=== PATIENT | female | born 1935 | race Caucasian/White ===

== ENCOUNTER 2016-10-17 09:47 | Emergency (ER) | payer MEDICARE ==
--- NOTE | ~2016-10-17 | CR63 ---
[facility] A Service of [facility] RADIOLOGY TEXT RESULTS PATIENT: KERRIE ROSARIO LOCATION: [facility] : 36 UNIT #: [id number] AGE: [address]: Sandra Higgins APRN SEX: F ORDER DR: [id number] [facility] [address] [place], [place] [address] [id number] E MR#: [id number] Acc #: [id number] NAME: KERRIE ROSARIO : 1935 SEX: F STUDY DATE/TIME: 10/17/2016 10:25 UNIT: [facility] ROOM: STUDY DESCRIPTION: CR Chest 2 View Attending Physician: Sandra Higgins A.P.R.N. Ordering Physician: Ed Doctor [id number] [facility] Primary Care Physician: Celeste Mirza M.D. MEDICAL IMAGING REPORT This report is preliminary unless electronic signature is present EXAM Chest 2 views 10/17/2016. INDICATIONS 81-year-old female with cough, shortness of air, symptoms 3 days. Right-sided breast cancer for 8 years, mastectomy. TECHNIQUE 2 views of the chest were performed. COMPARISON No comparisons. FINDINGS Cardiac silhouette is within normal limits for technique. The vascularity is unremarkable. Lung volumes are low and there is bronchovascular crowding. The left lung is clear. There is atelectasis or potentially pneumonia in the right lung base. Surgical clips project over the right axilla and right hemithorax, most characteristic of prior mastectomy and axillary node dissection procedures. No pneumothorax. IMPRESSION 1. Postop changes of mastectomy on the right and axillary node dissection. 2. Imaging features suggest atelectasis on the frontal view, but on the lateral view there is increased density in the right lung base and this may reflect right lower lobe pneumonia. Follow up to clearing after appropriate therapy is recommended. No pneumothorax or associated effusion. We have no comparisons. Dictated by... Merritt Thomas M.D. [facility] A Service of [facility] RADIOLOGY TEXT RESULTS PATIENT: KERRIE ROSARIO LOCATION: [facility] : 36 UNIT #: [id number] AGE: [address]: Sandra Higgins APRN SEX: F ORDER DR: THIS IS AN ELECTRONICALLY VERIFIED REPORT Merritt Thomas M.D. at 10/17/2016 5:35 PM Laurie TD: 10/17/2016 16:26 JOB #: [id number] MEDICAL IMAGING REPORT COPY
[2016-10-17 10:19] LABS: BASOPHIL% 0.4 % (0-2.5); EOSINOPHIL# 0.1 X10e3 (0-0.7); EOSINOPHIL% 1.7 % (0.0-7.0); HEMATOCRIT 33.9 % (35.0-45.0); HEMOGLOBIN 11.4 gm/dL (12.0-16.0); LYMPHOCYTE# 0.9 X10e3 (1.0-3.5); LYMPHOCYTE% 15.7 % (17.0-45.0); MEAN CELL VOLUME 90.2 FL (83-96); MEAN CORPUSCULAR HEMOGLOBIN 30.3 PG (28-34); MEAN CORPUSCULAR HGB CONC 33.6 g/dL (30-36); MEAN PLATELET VOLUME 9.5 FL (6.5-11.5); MONOCYTE# 0.4 X10e3 (0-1.0); NEUTROPHIL# 4.4 X10e3 (1.5-7.1); NEUTROPHIL% 75.2 % (40-75); PLATELET COUNT 209 X10e3 (140-420); RED BLOOD COUNT 3.76 X10e (3.90-5.30); RED CELL DISTRIBUTION WIDTH 14.1 % (11.0-15.5); WHITE BLOOD COUNT 5.8 X10e3 (4.0-10.5)
[2016-10-17 10:27] LABS: DIFF IND NO
[2016-10-17 10:52] LABS: ALBUMIN SERUM 3.5 g/dL (3.5-5.0); ALKALINE PHOSPHATASE 46 U/L (32-92); ALT (SGPT) 11 U/L (10-40); AST (SGOT) 15 U/L (10-42); BILIRUBIN, DIRECT 0.1 mg/dL (0.0-0.2); BILIRUBIN,INDIRECT 0.6 mg/dL (0.0-0.9); BILIRUBIN,TOTAL 0.7 mg/dL (0.2-2.0); BLOOD UREA NITROGEN 24 mg/dL (9-23); CALCIUM SERUM 9.6 mg/dL (8.4-10.2); CARBON DIOXIDE 26 mmol/L (22-31); CHLORIDE 102 mmol/L (100-111); CREATININE SERUM 0.8 mg/dL (0.6-1.4); GLOM FILT RATE Estimated ABOVE60 mL/min (>60); GLUCOSE FASTING 226 mg/dL (70-110); LIPASE 19 U/L (22-51); POTASSIUM 3.7 mmol/L (3.5-5.1); PROTEIN TOTAL SERUM 6.4 g/dL (6.0-8.3); SODIUM 136 mmol/L (135-145)
[2016-10-17 11:48] LABS: URINE SOURCE CLEAN CATCH
[2016-10-17 11:59] LABS: URINE APPEARANCE TURBID; URINE BILIRUBIN NEG (NEG); URINE BLOOD 2+ (NEG); URINE COLOR YELLOW; URINE GLUCOSE 100 MG/DL (NEG); URINE KETONE NEG (NEG); URINE LEUKOCYTE ESTERASE 3+ (NEG); URINE NITRATE NEG (NEG); URINE PROTEIN 2+ (NEG); URINE UROBILINOGEN 0.2 MG/DL (NEG)
[2016-10-17 12:02] LABS: CULTURE INDICATED? YES; URBCS1 AUWI 50-100 /[HPF] (0-2); URINE BACTERIA AUWI 4+ (NEGATIVE); URINE SQUAMOUS EPITHELIAL CELL OCC /[HPF]; UWBCS1 AUWI 200-300 (0-5)
== END 2016-10-17 13:00 | disposition home or self-care (01) ==
LOC: CED 09:47
PROVIDERS: Nurse Practitioner
DX: N30.00 Acute cystitis without hematuria (principal); J18.1 Lobar pneumonia, unspecified organism; Z86.73 Personal history of transient ischemic attack (TIA), and cerebral infarction without residual deficits; E11.9 Type 2 diabetes mellitus without complications; Z79.4 Long term (current) use of insulin; Z85.3 Personal history of malignant neoplasm of breast; Z90.710 Acquired absence of both cervix and uterus; Z90.49 Acquired absence of other specified parts of digestive tract; Z88.8 Allergy status to other drugs, medicaments and biological substances
CPT/HCPCS: 36415; 71020; 80048; 80076; 81003; 82947; 83690; 85025; 87086; 87088; 87186; 99284; J2405

== ENCOUNTER 2017-03-04 18:10 | Inpatient (IN) | payer MEDICARE ==
[~2017-03-04] VITALS: Ht 160 cm; Wt 82.6 kg
--- NOTE | ~2017-03-04 | CT52 ---
[facility] A Service of [facility] RADIOLOGY TEXT RESULTS PATIENT: KERRIE ROSARIO LOCATION: [facility] 328-01 : 36 UNIT #: [id number] AGE: [address]: Clay Orosco MD SEX: F ORDER DR: [id number] [facility] [address] [place], [place] [address] [id number] I MR#: [id number] Acc #: [id number] NAME: KERRIE ROSARIO : 1935 SEX: F STUDY DATE/TIME: 03/04/2017 20:13 UNIT: A [facility] ROOM: [facility] STUDY DESCRIPTION: CT Cervical Spine Wo Cont Attending Physician: Clay Orosco M.D. Referring Physician: Celeste Mirza M.D. Ordering Physician: Josef Posadas D.O. Primary Care Physician: Celeste Mirza M.D. MEDICAL IMAGING REPORT This report is preliminary unless electronic signature is present EXAM CT cervical spine without contrast HISTORY Fell yesterday in bathroom, generalized neck tenderness. TECHNIQUE This CT exam was performed with one or more of the following radiation dose reduction techniques: automatic exposure control, adjustment of mA and/or kV according to patient size, and iterative reconstruction. FINDINGS Axial images performed through the cervical spine without contrast. Multiplanar reconstructions. No definite acute fracture. Due to the advanced degenerative changes in the lower cervical spine particularly at C5 and C6 mild compression deformity cannot be excluded. There is retrolisthesis C5 on C6 and C6 on C7 and anterolisthesis C7 on T1. This is all most likely related to degenerative disc disease. Multilevel spinal and foraminal stenosis most pronounced at C5-6 and C6-7 particularly on the right at C6-7. Paravertebral soft tissues unremarkable. IMPRESSION No definite acute abnormality identified however due to patient's extensive degenerative changes lower cervical spine and multilevel facet disease, this could obscure underlying acute injury. Patient has retrolisthesis C5 on C6 and C6 on C7 and anterolisthesis C7 on T1 probably all degenerative in nature. There is multilevel spinal and foraminal stenosis most pronounced at C5-6 and C6-7. Dictated by... Samantha Arceo M.D. [facility]. [facility] A Service of [facility] RADIOLOGY TEXT RESULTS PATIENT: KERRIE ROSARIO LOCATION: [facility] 328-01 : 36 UNIT #: [id number] AGE: [address]: Clay Orosco MD SEX: F ORDER DR: THIS IS AN ELECTRONICALLY VERIFIED REPORT Samantha Arcoe M.D. at 03/05/2017 1:04 PM Stella TD: 03/05/2017 09:06 JOB #: [id number] MEDICAL IMAGING REPORT Page 1 of 1 COPY
--- NOTE | ~2017-03-04 | DS ---
Unit #: [id number] #: [id number] Patient: KERRIE ROSARIO [id number] [address] [address] [id number] I MR#: [id number] NAME: KERRIE ROSARIO ROOM: 328 Age: 81 Sex: F Admission Date: 03/04/2017 : 1935 Discharge Date: 03/06/2017 Attending Physician: Clay Orosco M.D. Referring Physician: Celeste Mirza M.D. Primary Care Physician: Celeste Mriza M.D. DISCHARGE SUMMARY DISCHARGE DIAGNOSES 1. Dizziness. 2. History of cerebrovascular accident. 3. Insulin-dependent diabetes. 4. Urinary tract infection. HOSPITAL COURSE The patient is an 81-year-old female, who presented to [facility] Emergency Department with complaint of feeling weak, some dizziness, and possible syncope. She stated that she simply did not feel well. CT scan of her head showed hypodensities and bilateral front white matter that were noted to be age indeterminate but felt to probably be chronic. There was thought to be no way to exclude an acute superimposed process. As a result, the patient was admitted. MRI and CT angiography were ordered per stroke purposes. MRI showed nothing acute. CT angiography revealed no hemodynamically flow-limiting stenosis in the bilateral internal carotid bulbs per NASCET criteria. There was no noted flow limitations throughout the scan. Incidentally, the patient was noted to have a urinary tract infection with her UA growing E. coli. The patient did note some urinary frequency of late. As a result, the patient is being discharged now on Keflex. DISCHARGE MEDICATIONS 1. Keflex 500 mg p.o. t.i.d. 2. Cozaar 100 mg p.o. daily. 3. Sertraline 150 mg p.o. daily. 4. Metformin 500 mg p.o. t.i.d. 5. Famotidine 20 mg p.o. daily. 6. Tolterodine 2 mg at bedtime. 7. Calcium plus vitamin D one p.o. b.i.d. 8. Aspirin 81 mg daily. 9. Atorvastatin 80 mg daily. 10. Lantus 13 units at bedtime. 11. Zofran 4 mg t.i.d. as needed for nausea. 12. Lomotil White 2.5 mg q.4 hours p.r.n. diarrhea. FOLLOWUP Patient should follow up with her primary care provider at the end of her antibiotic course. Unit #: [id number] #: [id number] Patient: KERRIE ROSARIO Dictated by... Sebastian Nj/jagruti TD: 03/07/2017 11:03 JOB #: [id number] DISCHARGE SUMMARY Page 1 of 1 X Clay Orosco MD X DISCHARGE SUMMARY
--- NOTE | ~2017-03-04 | CT17 ---
[facility] A Service of [facility] RADIOLOGY TEXT RESULTS PATIENT: KERRIE ROSARIO LOCATION: [facility] 328- : 36 UNIT #: [id number] AGE: [address]: Clay Orosco MD SEX: F ORDER DR: [id number] [facility] [address] [place], [place] [address] [id number] I MR#: [id number] Acc #: [id number] NAME: KERRIE ROSARIO : 1935 SEX: F STUDY DATE/TIME: 03/05/2017 13:36 UNIT: [address] ROOM: [facility] STUDY DESCRIPTION: CT Angio Head Attending Physician: Clay Orosco M.D. Referring Physician: Celeste Mirza M.D. Ordering Physician: Apple Durbin M.D. Primary Care Physician: Celeste Mirza M.D. MEDICAL IMAGING REPORT This report is preliminary unless electronic signature is present EXAM CT angiogram of the head and neck with contrast, 03/05/2017 COMPARISON MRI brain without contrast dated 03/05/2017, MRA head dated 03/17/2002 and carotid Doppler ultrasound study dated 03/16/2002. There are no recent priors in the last 10 years. HISTORY Subacute right frontal infarct. History of CVA and TIA. Vertigo, new onset weakness yesterday. The patient fell yesterday with loss of consciousness. TECHNIQUE This CT exam was performed with one or more of the following radiation dose reduction techniques: automatic exposure control, adjustment of mA and/or kV according to patient size, and iterative reconstruction. FINDINGS CT angiogram of the head and neck was obtained with IV contrast in the axial plane followed by reformats. Curved reformats of the carotid and vertebral arteries were performed in the neck. Reformats of the [place] was obtained in all three planes along with tumbling 3-D MIP images and surface-rendered images with bilateral MCA snapshots. These were obtained in the separate workstation as per the protocol. 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 Bilateral common carotid arteries, internal carotid arteries and external carotid arteries demonstrate normal expected course, caliber and flow. Bilateral vertebral arteries are dominate with expected course and caliber too. No focal stenosis, dissection or AVM is seen. [facility]. [facility] A Service of [facility] RADIOLOGY TEXT RESULTS PATIENT: KERRIE ROSARIO LOCATION: [facility] 328-01 : 36 UNIT #: [id number] AGE: [address]: Clay Orosco MD SEX: F ORDER DR: HEAD: Bilateral intracranial internal carotid arteries are noted with atherosclerotic plaques and bilateral cavernous and supraclinoid ICA. The A1 segment of the right UMER is of very small caliber when compared to the left suggestive of hypoplasia. 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 Bilateral middle cerebral arteries are within normal limits. Bilateral PCOMs are seen, more prominent in the right when compared to the left. Basilar artery and bilateral posterior cerebral arteries are unremarkable. Atherosclerotic plaques are noted in the proximal to mid third portions of bilateral V4 segments of the vertebral arteries without any significant distal flow limitation. No aneurysm or AVM. Dural venous sinuses are patent without filling defects to suggest thrombosis. EXTRAVASCULAR SOFT TISSUES: No enhancing intracranial mass, hydrocephalus or midline shift. MRI is more sensitive in evaluation of stroke. Refer to it. S-shaped nasal septal deviation is seen. Degenerative disc and facet changes are at multiple levels. No significant cervical lymphadenopathy. No significant acute abnormality is noted in the neck soft tissues. IMPRESSION 1. No hemodynamically flow-limiting significant stenosis in bilateral internal carotid artery bulbs per NASCET criteria. 2. 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 3. Atherosclerotic plaques are noted in bilateral cavernous and supraclinoid ICA and in bilateral vertebral arteries, worse in the vertebral arteries involving the proximal to mid third segment. There is probably [id number] narrowing without any distal flow limitation. 4. No aneurysm or AVM is seen. Dictated by... Cliff Roy M.D. THIS IS AN ELECTRONICALLY VERIFIED REPORT Cliff Roy M.D. at 03/06/2017 7:32 PM CPR/ljd TD: 03/06/2017 03:49 JOB #: [id number] MEDICAL IMAGING REPORT Page 1 of 1 COPY
--- NOTE | ~2017-03-04 | HP ---
Unit #: [id number] #: [id number] Patient: KERRIE ROSARIO [id number] [address] [address] [id number] I MR#: [id number] NAME: KERRIE ROSARIO ROOM: 328 Age: 81 Sex: F Admission Date: 03/04/2017 : 1935 Attending Physician: Clay Orosco M.D. Referring Physician: Celeste Mirza M.D. Primary Care Physician: Celeste Mirza M.D. HISTORY AND PHYSICAL CHIEF COMPLAINT Not feeling well, feeling weak, sick, fall yesterday, questionable syncope. DISCUSSION This is an 81-year-old female with history of insulin-dependent diabetes, overactive bladder, dyslipidemia, GERD, hypertension, anxiety, depression, history of right breast cancer with previous right mastectomy 9 years ago. She was brought to the emergency room with the chief complaint of not feeling well. She said, "I feel sick." Generalized weakness, not feeling like herself. She had questionable syncope in the past, but she declines. She said she does not know, but she had a fall at home yesterday. On workup here, CT scan shows hypodensity in the right frontal lobe, suspicious for subacute infarct. Eventually, she was admitted for further stroke workup. She denies any chest pain, nausea, vomiting, fever, chills, cough, dysuria or any other complaints. PAST MEDICAL HISTORY 1. History of insulin-dependent diabetes. 2. Overactive bladder. 3. Dyslipidemia. 4. GERD. 5. Hypertension. 6. Anxiety, depression. 7. History of right breast cancer status post right mastectomy 9 years ago. PAST SURGICAL HISTORY 1. Cholecystectomy. 2. Right mastectomy. SOCIAL HISTORY She lives at home alone. She denies smoking, alcohol, any illicit drug use. FAMILY HISTORY No history of stroke, diabetes, coronary artery disease in the family. MEDICATIONS FROM HOME 1. Lantus 13 units at bedtime. 2. Tolterodine tartrate 2 mg at bedtime. 3. Calcium with vitamin D 1 tablet b.i.d. 4. Aspirin 81 mg daily. 5. Atorvastatin 80 mg daily. Unit #: [id number] #: [id number] Patient: KERRIE ROSARIO 6. Famotidine 20 mg daily. 7. Lomotil 1 tablet q.4-6 hours p.r.n. 8. Zoloft 1.5 tablets daily. 9. Glucophage 500 mg t.i.d.. 10. Cozaar 100 mg daily. 11. Zofran ODT 1 tablet t.i.d. REVIEW OF SYSTEMS CONSTITUTIONAL: Generalized weakness. No fever. No chills. CARDIOVASCULAR: No chest pain. PULMONARY: No cough. No wheezing. No shortness of breath. GI: No nausea or vomiting. No abdominal pain. GENITOURINARY: Denies any (1) , dysuria. NEUROLOGIC: She reports not feeling very well but "no weakness," slurred speech. PSYCHIATRIC: Denies any depression. PHYSICAL EXAMINATION GENERAL: Elderly female lying in bed comfortably, currently not in any distress. She is alert, awake, oriented x3. CURRENT VITALS: Temperature is 98.4, heart rate 86, respiratory rate 16, blood pressure 158/98, oxygen 98% on room air. HEENT: Pupils are equal and reactive to light. Head is normocephalic and atraumatic. NECK: Neck is supple. No JVD. No thyromegaly. HEART: S1, S2. Regular rate and rhythm. LUNGS: Lungs are clear to auscultation bilaterally. No rhonchi. No wheezing. ABDOMEN: Abdomen is soft, nontender, nondistended. Bowel sounds are positive. EXTREMITIES: Inspection is normal. No cyanosis. No clubbing. No edema. NEUROLOGIC: Alert, oriented x4. Cranial nerves II-XII intact. No focal neurologic deficits. Power 5/5 on both sides. PSYCHIATRIC: Normal mood and affect. SKIN: Warm and dry. DIAGNOSTIC STUDIES LABORATORY WORKUP: Glucose 161. White count 5, hemoglobin 10, hematocrit 31, platelets 222. INR is 0.9. Chemistry - Sodium 133, potassium 3.8, chloride 101, glucose 158, BUN 18, creatinine 0.8. LFTs within normal limits. IMAGING: She had a CT of the head showing hypodensity in the right frontal lobe. Chest x-ray - Bibasilar atelectasis. X-ray left femur - Negative. X-ray of C spine - No acute findings. ASSESSMENT AND PLAN 1. Subacute versus chronic right frontal lobe infarct on the CT scan. Will admit the patient. Will do stroke workup. Will do MRI of the brain and will also get MRI of head and neck and two-D echo and ask neurology, Dr. Durbin, to evaluate. 2. Insulin-dependent diabetes. Continue Lantus. Place on sliding scale. 3. Overactive bladder. Unit #: [id number] #: [id number] Patient: KERRIE ROSARIO 4. Dyslipidemia. 5. Gastroesophageal reflux disease. 6. Hypertension. 7. Anxiety and depression. 8. History of right breast cancer with previous right mastectomy 9 years ago. 9. Deep vein thrombosis prophylaxis. Will place the patient on Lovenox. Dictated by Sebastian Bolton/qi TD: 03/05/2017 11:05 JOB #: [id number] HISTORY AND PHYSICAL Page 1 of 1 X X HISTORY AND PHYSICAL
--- NOTE | ~2017-03-04 | CO ---
Unit #: [id number] #: [id number] Patient: KERRIE ROSARIO [id number] [facility] [address] [place], [place] [address] [id number] I MR#: [id number] NAME: KERRIE ROSARIO ROOM: 328 Age: 81 Sex: F Admission Date: 03/04/2017 : 1935 Attending Physician: Clay Orosco M.D. Primary Care Physician: Celeste Mirza M.D. Consultation Date: 03/05/2017 CONSULTATION REPORT REASON FOR CONSULTATION Weakness, fall, questionable syncope, and also abnormal CT. PATIENT IDENTIFICATION This is an 81-year-old right handed white female, who is evaluated in room 328 at [facility]. SOURCE OF INFORMATION The patient and evaluation done by admitting team. PROBLEM LIST Include, but not limited to, 1. History of insulin-dependent diabetes mellitus. 2. Overactive bladder. 3. Dyslipidemia. 4. GERD. 5. Hypertension. 6. Anxiety and depression. 7. History of breast cancer, status post right mastectomy 9 years ago. 8. Cholecystectomy. 9. Right mastectomy. 10. Prior history of seizures. HISTORY OF PRESENT ILLNESS This is an 81-year-old right handed white female, who actually presented to the emergency room with weakness. She said that she had no energy and she reported that she had fallen. She was in her bathroom when she fell over her toilet into the bathtub and she said she may have passed out. There were no witnesses. There was no seizure-like activity. There was no otherwise loss of bowel or bladder control. Her urinalysis showed 5 to 10 wbc's, 4+ bacteria, trace leukocyte esterase, and positive nitrites. Other labs really do not look bad. Her random glucose was 158 and her vital signs on admission was 158 systolic and 98 diastolic blood pressure, nothing major otherwise. She is now awake and essentially alert and no new issues. No head injury. Otherwise no signs of infection. No change in medication. Her MRI was done and shows old right frontal infarct, but nothing acute. Her CTA and other labs are pending. Her working diagnosis right now was Unit #: [id number] #: [id number] Patient: ROSARIO,OLEEN weakness and post-syncope or fall. PAST MEDICAL HISTORY As discussed above. PAST SURGICAL HISTORY As discussed above. ALLERGIES Promethazine. HOME MEDICATIONS Acid control, which is famotidine; Lomotil; sertraline; Glucophage; Cozaar; Lantus; tolterodine tartrate; calcium; aspirin; atorvastatin 80 mg; Zofran. FAMILY HISTORY No history of stroke, diabetes, or coronary artery disease. SOCIAL HISTORY The patient lives alone. She denies tobacco, alcohol, or drug use. REVIEW OF SYSTEMS CONSTITUTIONAL: Generalized weakness and prior syncope. No recent weight issues, fever, chills, rigor, or sweats. HEENT: No headaches. No double vision, earache, runny nose, or sore throat. CARDIOVASCULAR: No chest pain, clubbing, cyanosis, orthopnea, or palpitation. PULMONARY: No shortness of air, cough, or expectoration. GI: No nausea, vomiting, diarrhea, or constipation. : No genitourinary symptom. EXTREMITIES: No other extremity problems. BACK: No back problems. PSYCHIATRIC: No real psychotic issue. NEUROLOGIC: No other neurologic issue except for questionable seizure last year. No other hematologic, dermatological, or endocrine problem. PHYSICAL EXAMINATION VITAL SIGNS: Temperature 98.1, pulse 73, respirations 20, blood pressure 153/88, O2 saturations were 100%. No pain was reported. Weight of 109 pounds, BMI was 35. NEUROLOGIC: The patient is awake. She is alert. She is oriented. She can name. She can follow commands. No right or left confusion. No finger agnosia. Cranial examination demonstrates full wolff of vision to confrontation. Eye movements are conjugate. I did not see any ptosis. I did not see any nystagmus. Extraocular movements are intact. Sensation on the face and scalp are normal. Strength of muscles of facial expression normal. Hearing seemed to be intact bilaterally. Tongue was midline. I could not visualize oropharynx or uvula. Head turning was spontaneous. Motor examination demonstrated normal bulk, tone. Strength was essentially 5-/5 all over. No drift was seen. Unit #: [id number] #: [id number] Patient: KERRIE ROSARIO Sensory examination intact for soft touch and pain sensation. No extinction was seen. Romberg was not evaluated. Gait exam was deferred. I could not get any reflexes. DIAGNOSTIC STUDIES IMAGING STUDIES: CT reviewed. MRI of the brain reviewed personally. CT is pending. LABORATORY RESULTS: Other labs reviewed. IMPRESSION Very atypical finding, questionable fall, questionable syncope, questionable generalized weakness. There is no acute stroke. I will follow up on the CTA. She says that last July she had this seizures that she was in the hospital, not here, so we will try to get the records from wherever she went and I may have to put her on Keppra unless there is a reason. She says she was treated for seizures, so was there any other reason, hemodynamics or followup. Call if any other questions, issues, or concerns and I will follow her up. precautions apply if she did. Dictated by... Apple Durbin M.D. TAMIKA/abraham TD: 03/05/2017 18:43 JOB #: [id number] CONSULTATION REPORT Page 1 of 1 X Apple Durbin MD X CONSULTATION REPORT
--- NOTE | ~2017-03-04 | CT71 ---
[facility] A Service of [facility] & [facility] RADIOLOGY TEXT RESULTS PATIENT: KERRIE ROSARIO LOCATION: [facility] 328-01 : 36 UNIT #: [id number] AGE: [address]: Clay Orosco MD SEX: F ORDER DR: [id number] [facility] [address] [place], [place] [address] [id number] I MR#: [id number] Acc #: [id number] NAME: KERRIE ROSARIO : 1935 SEX: F STUDY DATE/TIME: 03/04/2017 20:06 UNIT: [address] ROOM: [facility] STUDY DESCRIPTION: CT Head Wo Contrast Attending Physician: Clay Orosco M.D. Referring Physician: Celeste Mirza M.D. Ordering Physician: Josef Posadas D.O. Primary Care Physician: Celeste Mirza M.D. MEDICAL IMAGING REPORT This report is preliminary unless electronic signature is present EXAM CT head without contrast, 03/04/2017 HISTORY The patient fell yesterday in the bathroom with loss of consciousness. Vertigo, generalized neck tenderness. TECHNIQUE This CT exam was performed with one or more of the following radiation dose reduction techniques: automatic exposure control, adjustment of mA and/or kV according to patient size, and iterative reconstruction. FINDINGS CT of the head was obtained without contrast in the axial plane as per the protocol. Patchy hypodensities are noted in bifrontal white matter, larger on the right when compared to minimally present in the left periventricular region. No acute intracranial hemorrhage, hydrocephalus or midline shift is seen. Bones, paranasal sinuses and mastoid air cells do not demonstrate any significant abnormality. Imaged orbits with the ocular structures do not demonstrate any significant abnormality either. IMPRESSION 1. Hypodensities are noted in bifrontal white matter, more prominent in the right frontal lobe. It appears to be age indeterminate. It is probably chronic. It appears to be much larger when compared to the prior CT head from 2004. An acute superimposed or chronic component cannot be completely excluded. 2. On an elective basis, MRI of the brain can be considered with and without contrast if there is persistent clinical concern. 3. No acute intracranial hemorrhage, hydrocephalus or midline shift. [facility]. [facility] A Service of [facility] & [facility] RADIOLOGY TEXT RESULTS PATIENT: KERRIE ROSARIO LOCATION: [facility] 328-01 : 36 UNIT #: [id number] AGE: [address]: Clay Orosco MD SEX: F ORDER DR: Dictated by... Cliff Roy M.D. THIS IS AN ELECTRONICALLY VERIFIED REPORT Cliff Roy M.D. at 03/06/2017 7:32 PM CPR/sonia TD: 03/05/2017 09:18 JOB #: [id number] MEDICAL IMAGING REPORT Page 1 of 1 COPY
--- NOTE | ~2017-03-04 | CT23 ---
[facility] A Service of [facility] & [facility] RADIOLOGY TEXT RESULTS PATIENT: KERRIE ROSARIO LOCATION: [facility] 328-01 : 36 UNIT #: [id number] AGE: [address]: Clay Orosco MD SEX: F ORDER DR: [id number] [facility] [address] [place], [place] [address] [id number] I MR#: [id number] Acc #: [id number] NAME: KERRIE ROSARIO : 1935 SEX: F STUDY DATE/TIME: 03/05/2017 13:36 UNIT: [address] ROOM: [facility] STUDY DESCRIPTION: CT Angio Neck Attending Physician: Clay Orosco M.D. Referring Physician: Celeste Mirza M.D. Ordering Physician: Apple Durbin M.D. Primary Care Physician: Celeste Mirza M.D. MEDICAL IMAGING REPORT This report is preliminary unless electronic signature is present EXAM CTA neck, 03/05/2017 For results of this exam please see report of CTA head of the same date. Dictated by... Cliff Roy M.D. THIS IS AN ELECTRONICALLY VERIFIED REPORT Cliff Roy M.D. at 03/06/2017 7:34 PM CPR/ljd TD: 03/06/2017 04:06 JOB #: [id number] MEDICAL IMAGING REPORT Page 1 of 1 COPY
--- NOTE | ~2017-03-04 | CR106 ---
[facility] A Service of [facility] & [facility] RADIOLOGY TEXT RESULTS PATIENT: KERRIE ROSARIO LOCATION: [facility] 328-01 : 36 UNIT #: [id number] AGE: [address]: Clay Orosco MD SEX: F ORDER DR: [id number] [facility] [address] [place], [place] [address] [id number] I MR#: [id number] Acc #: [id number] NAME: KERRIE ROSARIO : 1935 SEX: F STUDY DATE/TIME: 03/04/2017 20:19 UNIT: [address] ROOM: [facility] STUDY DESCRIPTION: CR Femur 2 Views Lt Attending Physician: Clay Orosco M.D. Referring Physician: Celeste Mirza M.D. Ordering Physician: Josef Posadas D.O. Primary Care Physician: Celeste Mirza M.D. MEDICAL IMAGING REPORT This report is preliminary unless electronic signature is present EXAM Left femur HISTORY Left upper leg pain for 2 days. FINDINGS Routine views of the left femur demonstrates mild arthritic changes of the left hip. No fracture or dislocation. Probable mild patellofemoral arthrosis. Vascular calcifications noted. Dictated by... Samantha Arceo M.D. THIS IS AN ELECTRONICALLY VERIFIED REPORT Samantha Arceo M.D. at 03/05/2017 1:04 PM SLOAN/sonia TD: 03/05/2017 09:17 JOB #: [id number] MEDICAL IMAGING REPORT Page 1 of 1 COPY
--- NOTE | ~2017-03-04 | EKG ---
PATIENT: KERRIE ROSARIO UNIT #: [id number] Ventricular Rate: 82 BPM Atrial Rate: 82 BPM P-R Interval: 142 ms QRS Duration: 84 ms Q-T Interval: 408 ms QTC Calculation(Bezet): 476 ms P Deepwater: 8 degrees Calculated R Deepwater: -5 degrees Calculated T Deepwater: 41 degrees Diagnosis Line: Sinus rhythm with Premature supraventricular Diagnosis Line: complexes Diagnosis Line: Cannot rule out Anterior infarct , age Diagnosis Line: undetermined Diagnosis Line: Abnormal ECG Diagnosis Line: Diagnosis Line: Confirmed by CARLOS LONG MD ([id number]) on Diagnosis Line: 03/05/2017 11:17:04 PM INTERPRETING MD: MERCEDES COLON
--- NOTE | ~2017-03-04 | CR72 ---
[facility] A Service of [facility] & [facility] RADIOLOGY TEXT RESULTS PATIENT: KERRIE ROSARIO LOCATION: [facility] 328-01 : 36 UNIT #: [id number] AGE: [address]: Clay Orosco MD SEX: F ORDER DR: [id number] [facility] [address] [place], [place] [address] [id number] I MR#: [id number] Acc #: [id number] NAME: KERRIE ROSARIO : 1935 SEX: F STUDY DATE/TIME: 03/04/2017 20:17 UNIT: [address] ROOM: [facility] STUDY DESCRIPTION: CR Chest Single View Portable Attending Physician: Clay Orosco M.D. Referring Physician: Celeste Mirza M.D. Ordering Physician: Josef Posadas D.O. Primary Care Physician: Celeste Mirza M.D. MEDICAL IMAGING REPORT This report is preliminary unless electronic signature is present EXAM Portable chest HISTORY Cough and congestion x2 days FINDINGS Portable view of the chest demonstrates bibasilar atelectasis. No dense consolidation or sizeable effusions. Heart and mediastinum unremarkable. Surgical clips noted in the right axilla. No pneumothorax. Dictated by... Samantha Arceo M.D. THIS IS AN ELECTRONICALLY VERIFIED REPORT Samantha Arceo M.D. at 03/05/2017 1:04 PM Stella TD: 03/05/2017 09:15 JOB #: [id number] MEDICAL IMAGING REPORT Page 1 of 1 COPY
--- NOTE | ~2017-03-04 | MR18 ---
[facility] A Service of [facility] & [facility] RADIOLOGY TEXT RESULTS PATIENT: KERRIE ROSARIO LOCATION: [facility] 328-01 : 36 UNIT #: [id number] AGE: [address]: Clay Orosco MD SEX: F ORDER DR: [id number] [facility] [address] [place], [place] [address] [id number] I MR#: [id number] Acc #: [id number] NAME: KERRIE ROSARIO : 1935 SEX: F STUDY DATE/TIME: 03/05/2017 13:53 UNIT: [address] ROOM: [facility] STUDY DESCRIPTION: MR Brain Wo Contrast Attending Physician: Clay Orosco M.D. Referring Physician: Celeste Mirza M.D. Ordering Physician: Apple Durbin M.D. Primary Care Physician: Celeste Mirza M.D. MRI CENTER REPORT This report is preliminary unless electronic signature is present. EXAM MRI of the brain without contrast dated 03/05/2017. COMPARISON MRI brain with contrast dated 03/15/2002, CT angiogram head and neck dated 03/05/[address] head without contrast dated 03/04/2017. HISTORY Patient fell in the bathroom on 03/03/2017, vertigo. Left upper lip is droopy. FINDINGS Multisequence, multiplanar imaging of the brain was obtained without contrast. No acute stroke, space-occupying intracranial mass, mass effect, midline shift or hydrocephalus. Vascular flow voids of the major cerebral arteries and dural venous sinuses are not occluded in these thicker slices. S-shaped nasal septal deviation is seen. Status post bilateral cataract surgery. Increased T2 signal changes are noted in the periventricular white matter, with a larger component in the right frontal lobe extending from the cortex to the right frontal periventricular white matter. It was also noted in the prior study from 2001, but it appears to have increased in the interval 15 years, particularly along the inferior aspect of this lesion with extension to the right frontal periventricular white matter. Few other scattered hyperintense T2-signal lesions are noted in the supratentorial white matter involving the subcortical and periventricular region, mildly worse. No acute stroke, midline shift, hemorrhage or hydrocephalus. 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 Pineal region is unremarkable. Degenerative changes are noted in the cervical spine. IMPRESSION 1. No acute demonstrable intracranial abnormality. [facility] A Service of [facility] RADIOLOGY TEXT RESULTS PATIENT: KERRIE ROSARIO LOCATION: [facility] 328-01 : 36 UNIT #: [id number] AGE: [address]: Clay Orosco MD SEX: F ORDER DR: 2. Scattered hyperintense T2-signal lesions are noted in the brain, predominantly in the supratentorial white matter. The largest component is in the right frontal lobe, extending from the cortex to the periventricular white matter. It was also seen in the prior study from 2001. It has however increased in the last 15 years due to subsequent insults, but they appear to be chronic and are probably related to ischemic insults. Dictated by... Cliff Roy M.D. THIS IS AN ELECTRONICALLY VERIFIED REPORT Cliff Roy M.D. at 03/06/2017 7:32 PM CPR/psc TD: 03/06/2017 00:09 JOB #: [id number] MRI CENTER REPORT Page 1 of 1 COPY
[2017-03-04 20:18] LABS: BASOPHIL% 0.3 % (0-2.5); EOSINOPHIL# 0.1 X10e3 (0-0.7); EOSINOPHIL% 2.8 % (0.0-7.0); HEMATOCRIT 31.2 % (35.0-45.0); HEMOGLOBIN 10.1 gm/dL (12.0-16.0); LYMPHOCYTE# 1.6 X10e3 (1.0-3.5); LYMPHOCYTE% 29.4 % (17.0-45.0); MEAN CELL VOLUME 85.4 FL (83-96); MEAN CORPUSCULAR HEMOGLOBIN 27.8 PG (28-34); MEAN CORPUSCULAR HGB CONC 32.5 g/dL (30-36); MEAN PLATELET VOLUME 8.9 FL (6.5-11.5); MONOCYTE# 0.5 X10e3 (0-1.0); MONOCYTE% 10.2 % (3.0-12.0); NEUTROPHIL% 57.3 % (40-75); PLATELET COUNT 222 X10e3 (140-420); RED BLOOD COUNT 3.65 X10e (3.90-5.30); RED CELL DISTRIBUTION WIDTH 13.8 % (11.0-15.5); WHITE BLOOD COUNT 5.3 X10e3 (4.0-10.5)
[2017-03-04 20:19] LABS: DIFF IND NO
[2017-03-04 20:32] LABS: INR 0.9; PARTIAL THROMBOPLASTIN TIME 23.6 SECONDS (23.5-31.3)
[2017-03-04 20:47] LABS: ALBUMIN SERUM 3.3 g/dL (3.5-5.0); ALKALINE PHOSPHATASE 46 U/L (32-92); ALT (SGPT) 15 U/L (10-40); AST (SGOT) 15 U/L (10-42); BILIRUBIN,TOTAL 0.8 mg/dL (0.2-2.0); BLOOD UREA NITROGEN 18 mg/dL (9-23); CALCIUM SERUM 9.3 mg/dL (8.4-10.2); CARBON DIOXIDE 26 mmol/L (22-31); CHLORIDE 101 mmol/L (100-111); CREATININE SERUM 0.8 mg/dL (0.6-1.4); GLOM FILT RATE Estimated 69.7 mL/min (>60); GLUCOSE FASTING 158 mg/dL (70-110); POTASSIUM 3.8 mmol/L (3.5-5.1); PROTEIN TOTAL SERUM 6.2 g/dL (6.0-8.3); SODIUM 133 mmol/L (135-145)
[2017-03-04 20:52] LABS: BILIRUBIN, DIRECT <0.1 mg/dL (0.0-0.2); BILIRUBIN,INDIRECT 0.7 mg/dL (0.0-0.9)
[2017-03-04 21:02] LABS: URINE SOURCE CLEAN CATCH
[2017-03-04 21:14] LABS: URINE APPEARANCE CLEAR; URINE BILIRUBIN NEG (NEG); URINE BLOOD NEG (NEG); URINE COLOR YELLOW; URINE GLUCOSE NEG (NEG); URINE KETONE NEG (NEG); URINE LEUKOCYTE ESTERASE TRACE (NEG); URINE NITRATE POS (NEG); URINE PROTEIN NEG (NEG); URINE SPECIFIC GRAVITY 1.009 (1.003-1.035); URINE UROBILINOGEN 0.2 MG/DL (NEG)
[2017-03-04 21:16] LABS: CULTURE INDICATED? YES; URBCS1 AUWI 0-2 /[HPF] (0-2); URINE BACTERIA AUWI 4+ (NEGATIVE); URINE SQUAMOUS EPITHELIAL CELL OCC /[HPF]
[2017-03-04] MEDS ORDERED: LANTUS100 U/ML SUBQ (21:18)
[2017-03-04] MEDS ORDERED: CALCIUM 600 +1 EAC2 PO (21:19)
[2017-03-04] MEDS ORDERED: ATORVASTATIN CA80 MG PO (21:19)
[2017-03-04] MEDS ORDERED: ASPIRIN81 MG PO (21:19)
[2017-03-04] MEDS ORDERED: TOLTERODINE TART2 M1 PO (21:19)
[2017-03-04] MEDS ORDERED: ACID CONTROLLER20 MG PO (21:20)
[2017-03-04] MEDS ORDERED: LOMOTIL WHITE2.5 M1 PO (21:20)
[2017-03-04] MEDS ORDERED: METFORMIN PO (21:21)
[2017-03-04] MEDS ORDERED: SERTRALINE HCL100 M1 PO (21:21)
[2017-03-04] MEDS ORDERED: COZAAR100 MG PO (21:22)
[2017-03-04] MEDS ORDERED: ZOFRAN ODT4 M1 SL (21:22)
[2017-03-04 21:57] LABS: CK TOTAL 55 IU/L (26-140)
[2017-03-04 22:46] LABS: POC - TROPONIN <0.05 ng/mL (<=0.05)
[2017-03-05 05:23] LABS: CALCIUM SERUM 8.6 mg/dL (8.4-10.2); GLOM FILT RATE Estimated 53.2 mL/min (>60); POTASSIUM 3.8 mmol/L (3.5-5.1)
[2017-03-06 06:41] LABS: HEMATOCRIT 32.9 % (35.0-45.0); HEMOGLOBIN 10.4 gm/dL (12.0-16.0); MEAN CELL VOLUME 86.2 FL (83-96); MEAN CORPUSCULAR HEMOGLOBIN 27.3 PG (28-34); MEAN CORPUSCULAR HGB CONC 31.7 g/dL (30-36); MEAN PLATELET VOLUME 9.2 FL (6.5-11.5); RED BLOOD COUNT 3.82 X10e (3.90-5.30); RED CELL DISTRIBUTION WIDTH 14.4 % (11.0-15.5); WHITE BLOOD COUNT 5.1 X10e3 (4.0-10.5)
[2017-03-06 07:23] LABS: BUN/CREATININE RATIO 17.5; CALCIUM SERUM 9.1 mg/dL (8.4-10.2); CREATININE SERUM 0.8 mg/dL (0.6-1.4); GLOM FILT RATE Estimated 69.7 mL/min (>60); POTASSIUM 4.1 mmol/L (3.5-5.1)
[2017-03-06] MEDS ORDERED: KEFLEX500 M1 PO (16:00)
== END 2017-03-06 16:56 | disposition home or self-care (01) | DRG 948 ==
LOC: CED 18:10 → CEDOF 21:50 → C3A PCU 21:50 → CED 21:50 → C3A PCU 03-05 04:59 → CEDOF 03-05 04:59 → C3A PCU 03-06 16:56
PROVIDERS: Emergency Medicine; Internal Medicine
PROC: B32RYZZ Computerized Tomography (CT Scan) of Intracranial Arteries using Other Contrast (ICD-10-PCS; principal; 2017-03-05)
PROC: B325YZZ Computerized Tomography (CT Scan) of Bilateral Common Carotid Arteries using Other Contrast (ICD-10-PCS; 2017-03-05)
PROC: B328YZZ Computerized Tomography (CT Scan) of Bilateral Internal Carotid Arteries using Other Contrast (ICD-10-PCS; 2017-03-05)
PROC: B24BZZZ Ultrasonography of Heart with Aorta (ICD-10-PCS; 2017-03-05)
DX: R53.1 Weakness (principal); N39.0 Urinary tract infection, site not specified; E11.9 Type 2 diabetes mellitus without complications; B96.20 Unspecified Escherichia coli [E. coli] as the cause of diseases classified elsewhere; I10 Essential (primary) hypertension; R42 Dizziness and giddiness; Z79.4 Long term (current) use of insulin; R55 Syncope and collapse; N32.81 Overactive bladder; E78.5 Hyperlipidemia, unspecified; K21.9 Gastro-esophageal reflux disease without esophagitis; F41.9 Anxiety disorder, unspecified; F32.9 Major depressive disorder, single episode, unspecified; R93.0 Abnormal findings on diagnostic imaging of skull and head, not elsewhere classified; Z86.73 Personal history of transient ischemic attack (TIA), and cerebral infarction without residual deficits; Z90.49 Acquired absence of other specified parts of digestive tract; Z85.3 Personal history of malignant neoplasm of breast; Z90.11 Acquired absence of right breast and nipple
CPT/HCPCS: 36415; 70450; 70496; 70498; 70551; 71010; 72125; 73552; 80048; 80076; 81003; 82550; 82553; 82947; 84484; 85025; 85027; 85610; 85730; 87086; 87088; 87186; 93005; 93306; 94760; 96361; 96374; 97161; 97165; 99285; G8978-GP; G8979-GP; G8980-GP; G8987-GO; G8988-GO; G8989-GO; J1650; J1815; J2405; Q9967